=== PATIENT | female | born 1945 | race Caucasian/White ===

== ENCOUNTER → 2018-01-29 | Outpatient (CLI) | payer MEDICARE ==
[~2018-01-29] MED LIST: AMARYL 2MG T2 MG/TAB PO; ASPIRIN 81M81 MG/TA2 PO; BLOOD PRESSURE MED PO; CEFTIN500 MG PO; CHOLESTEROL PILL PO; CLEOCIN HC150 MG/CAP PO; COZAAR 50MG50 MG/TAB PO; DOXYCYCLINE 10100 MG PO; GLUCOPHAGE1000 MG PO; GLUCOPHAGE500 MG/TAB PO; HCTZ 25MG TAB25 MG PO; LANTUS SOLOS100 U/ML SQ; LEVOXYL0.025 MG PO; LIPITOR20 MG PO; OMNICEF 300MG300 MG PO; PROTONIX 40MG T40 MG PO; SYNTHROID0.05 MG/TA PO; ZANTAC 150MG T150 MG PO; [UNRECOGNIZED DRUG - OTHER] PO
== END ==
LOC: ZCOL.LAB 11:35
DX: L97.529 Non-pressure chronic ulcer of other part of left foot with unspecified severity (principal)

== ENCOUNTER → 2019-02-28 | Outpatient (CLI) | payer MEDICARE, OTHER | END | disposition home or self-care (01) | LOC: ZCOL.LAB 12:34 → ZLAB.WCH 12:34 → EDSTATUS 14:27 | DX: E11.9 Type 2 diabetes mellitus without complications (principal); L97.519 Non-pressure chronic ulcer of other part of right foot with unspecified severity ==

== ENCOUNTER 2020-10-02 06:48 | Day surgery (SDC) | payer MEDICARE ==
[~2020-10-02] VITALS: Ht 167.6 cm; Wt 90.5 kg
[2020-10-02 07:34] VITALS: BP 147/59; PULSE 59; TEMP 97.4
[2020-10-02] MEDS ORDERED: AMARYL4 MG PO (07:42)
[2020-10-02] MEDS ORDERED: FLONASE NASAL S16 GM NS (07:47)
[2020-10-02] MEDS ORDERED: INDERAL 20MG20 MG PO (07:47)
[2020-10-02] MEDS ORDERED: CLARITIN 1010 MG/TAB PO (07:48)
[2020-10-02] MEDS ORDERED: PRECOSE 25MG25 MG PO (07:51)
[2020-10-02] MEDS ORDERED: MASON NATURAL1200 MG PO (07:52)
[2020-10-02] MEDS ORDERED: DIOVAN320 MG PO (07:53)
[2020-10-02] MEDS ORDERED: TRULICITY0.75 MG/0. SQ (08:07)
[2020-10-02] MEDS ORDERED: JARDIANCE25 PO (08:07)
[2020-10-02] MEDS ORDERED: MULTIPLE VITAMI1 TA5 PO (08:08)
[2020-10-02] MEDS ORDERED: XALATAN EYE DROPS OU (08:10)
[2020-10-02] MEDS ORDERED: ACTOS 15MG TAB15 MG PO (08:10)
[2020-10-02] MEDS ORDERED: TAGAMET HB200 MG PO (08:14)
[2020-10-02 09:50] VITALS: BP 105/47; PULSE 69; TEMP 97
[2020-10-02 10:05] VITALS: BP 115/55; PULSE 59
[2020-10-02 10:20] VITALS: BP 128/60; PULSE 60
[2020-10-02 10:35] VITALS: BP 125/58; PULSE 64
== END 2020-10-02 11:20 | disposition home or self-care (01) ==
LOC: SDCO 06:48
DX: S90.852A Superficial foreign body, left foot, initial encounter (principal); E11.22 Type 2 diabetes mellitus with diabetic chronic kidney disease; I12.9 Hypertensive chronic kidney disease with stage 1 through stage 4 chronic kidney disease, or unspecified chronic kidney disease; N18.9 Chronic kidney disease, unspecified; E11.42 Type 2 diabetes mellitus with diabetic polyneuropathy; K21.9 Gastro-esophageal reflux disease without esophagitis; E03.9 Hypothyroidism, unspecified; E11.40 Type 2 diabetes mellitus with diabetic neuropathy, unspecified; E78.2 Mixed hyperlipidemia; I49.3 Ventricular premature depolarization; N18.30 Chronic kidney disease, stage 3 unspecified; H40.9 Unspecified glaucoma; M19.90 Unspecified osteoarthritis, unspecified site; Z79.4 Long term (current) use of insulin; Z79.899 Other long term (current) drug therapy; Z79.82 Long term (current) use of aspirin; Z87.891 Personal history of nicotine dependence; Z89.421 Acquired absence of other right toe(s)
CPT/HCPCS: J0690; J2250; J2704; J2795; J7030